=== PATIENT | female | born 1995 | race Caucasian/White ===

== ENCOUNTER 2018-08-12 13:02 | Inpatient (IN) ==
[2018-08-12 15:22] LABS: BILIRUBIN URINE 3+ (NEGATIVE); BLOOD URINE 2+ (NEGATIVE); CLARITY VERY CLOUDY (CLEAR); COLOR YELLOW; GLUCOSE URINE NEGATIVE (NEGATIVE); KETONE URINE 1+(Small) mg/dL (NEGATIVE); LEUKOCYTES URINE 2+ (NEGATIVE); NITRITE URINE NEGATIVE (NEGATIVE); PH URINE 6.5; UROBILINOGEN URINE 4 mg/dL
[2018-08-12 15:25] LABS: URINE BACTERIA 2+ /HFP; URINE CAST GRANULAR PRESENT /LPF; URINE CRYSTAL NONE SEEN /HPF; URINE EPITHELIAL CELLS >10 /HPF (<10); URINE RBC <10 /HPF (<10); URINE SOURCE CLEAN CATCH; URINE YEAST NONE SEEN /HPF
[2018-08-12] MEDS ORDERED: ZOFRAN IV ONE ×2 (15:47→18:44)
[2018-08-12] MEDS ORDERED: NS 1,000 ML IV ONE ×3 (15:47→18:58)
[2018-08-12] MEDS ORDERED: ROCEPHIN 1 GM in NS 50 ML IV ONE (15:48)
--- NOTE | 2018-08-12 16:26 | PROVIDER DOCUMENTATION ---
This chart was entered by Cora Zurita Scribe, acting as scribe for Dontrell Presley CRNP. HPI-General Adult - General Source: patient - History of Present Illness -Gen Adult Nature of Presenting Problems: 23 yowf presents to the ed with c/o bodyaches dysuria and pt is tachycardiac. pt was recently dc from hospital with sepsis and is currently on abx for UTI. pt has 2 more days of abx but sts sx have not improved. pt is unkempt in appearance Location of Pain/Injury: reports: generalized (bodyaches) Quality of Pain: reports: aching Severity: reports: moderate Onset/Duration: reports: other (10 days) Timing: reports: still present, getting worse Context/Activities at Onset: reports: light activity Modifying Factors: improves with: nothing Associated Symptoms: reports: fatigue, genitourinary problems, malaise, muscle aches. denies: back/neck pain, chest pain, fever/chills, nausea, vomiting Similar Symptoms Previously?: Yes Recently seen or treated by another doctor?: Yes (was seen in ed 07/29) <Dontrell Presley - Last Filed: 08/12/18 16:33> - General Source: patient - History of Present Illness -Gen Adult Location of Pain/Injury: reports: generalized Quality of Pain: reports: aching Severity: reports: moderate Onset/Duration: reports: other Timing: reports: still present, getting worse Context/Activities at Onset: reports: light activity Similar Symptoms Previously?: Yes Recently seen or treated by another doctor?: Yes <Aida Alegria - Last Filed: 08/12/18 20:40> - General Chief Complaint: Return/Recheck Stated Complaint: RETURN / REVISIT Time Seen by Provider: 08/12/18 15:44 Allergies/Adverse Reactions: Patient Allergies Allergy/AdvReac Type Severity Reaction Status Date / Time No Known Allergies Allergy Verified 07/28/17 13:01 Home Medications: Home Medication List Medication Instructions Recorded Confirmed Last Taken Type Cephalexin [Keflex] 500 mg PO BID #20 cap 07/29/18 Unknown Rx Review of Systems - Adult - REVIEW OF SYSTEMS - ADULT Constitutional: denies: chills, fever Eyes: reports: no symptoms reported Ears, Nose, Mouth & Throat: reports: no symptoms reported Cardiovascular: denies: chest pain, palpitations, syncope Respiratory: denies: cough, shortness of breath, wheezing Gastrointestinal: reports: no symptoms reported Genitourinary: reports: see HPI, dysuria, frequent UTI's Musculoskeletal: reports: see HPI, muscle aches. denies: back pain, neck pain Integumentary: reports: no symptoms reported Neurological: denies: dizziness/vertigo, headache/migraines Psychiatric: reports: no symptoms reported Endocrine: reports: no symptoms reported Hematologic/Lymphatic: reports: no symptoms reported Allergic/Immunologic: reports: no symptoms reported All Other Systems: Reviewed and Negative <Dontrell Presley - Last Filed: 08/12/18 16:33> - REVIEW OF SYSTEMS - ADULT Eyes: reports: no symptoms reported <Aida Alegria - Last Filed: 08/12/18 20:40> Past History - Adult - PAST MEDICAL HISTORY-ADULT Review of Records: reports: Nursing Assessment Review, Medications Reviewed Major Childhood Illnesses: reports: denies history Cardiovascular: reports: denies history Respiratory: reports: denies history Gastrointestinal: reports: denies history Obstetrical/Gynecological: reports: denies history Genitourinary: reports: denies history Musculoskeletal: reports: denies history Neurological: reports: denies history Psychiatric: reports: anxiety Endocrine/Immune: reports: denies history Other Conditions: reports: denies history - PRIOR SURGERIES/PROCEDURES Surgical/Procedure History: reports: tonsillectomy - IMMUNIZATION STATUS Childhood Immunizations: See Nurse Assessment Flu Vaccine: See Nurse Assessment - FAMILY HISTORY Family History: reviewed, not pertinent - SOCIAL HISTORY Smoking: cigarettes, less than 1 pack/day Provider spent 3-5 mins advising pt. on dangers of tobacco.: Discussed manners to quit use, and f/u contacts for add'l counseling. Substance Use: denies Alcohol Use Frequency: never Living Situation: family <Dontrell Presley - Last Filed: 08/12/18 16:33> - PAST MEDICAL HISTORY-ADULT Review of Records: reports: Medications Reviewed <Aida Alegria - Last Filed: 08/12/18 20:40> Physical Exam-General - PHYSICAL EXAM-ADULT Initial Vital Signs Reviewed: Yes - CONSTITUTIONAL General Appearance: alert, mild distress - EYES Eyes: PERRL/EOMI, pink conjunctivae - HEAD, EARS, NOSE, MOUTH & THROAT HENMT: moist mucous membranes, normal ENT inspection - NECK Neck: non-tender, full range of motion, supple, normal inspection - RESPIRATORY Respiratory: chest non-tender, lungs clear, normal breath sounds - CARDIOVASCULAR Cardiovascular: normal peripheral pulses, tachycardia (135) - GASTROINTESTINAL (ABDOMEN) Abdominal Exam: normal bowel sounds, non tender, soft - LYMPHATIC Lymphatic: no adenopathy - MUSCULOSKELETAL Back Exam: normal inspection Extremity: normal range of motion, non-tender, normal gait, normal inspection - SKIN Integumentary: normal color, normal turgor, warm/dry - NEUROLOGIC Neurologic: grossly normal - PSYCHIATRIC Psych/Mental Status: normal mood/affect, normal thought content, normal thought process, oriented x 3 <Dontrell Presley - Last Filed: 08/12/18 16:33> - PHYSICAL EXAM-ADULT Initial Vital Signs Reviewed: Yes - CONSTITUTIONAL General Appearance: alert, mild distress - EYES Eyes: PERRL/EOMI, pink conjunctivae - HEAD, EARS, NOSE, MOUTH & THROAT HENMT: moist mucous membranes, normal ENT inspection - NECK Neck: non-tender, full range of motion, supple, normal inspection - RESPIRATORY Respiratory: chest non-tender, lungs clear, normal breath sounds - CARDIOVASCULAR Cardiovascular: normal peripheral pulses, tachycardia - GASTROINTESTINAL (ABDOMEN) Abdominal Exam: normal bowel sounds, soft, tenderness (RUQ) - LYMPHATIC Lymphatic: no adenopathy - MUSCULOSKELETAL Back Exam: normal inspection Extremity: normal range of motion, non-tender, normal gait, normal inspection - SKIN Integumentary: normal color, normal turgor, warm/dry - NEUROLOGIC Neurologic: grossly normal - PSYCHIATRIC Psych/Mental Status: normal mood/affect, normal thought content, normal thought process, oriented x 3 <Aida Alegria - Last Filed: 08/12/18 20:40> Progress - PLAN OF CARE/RESULTS Progress/Plan/Lab Results: Vital Signs - 8 hr 08/12/18 13:10 Temperature 98.1 F Pulse Rate 135 H Respiratory Rate 18 Blood Pressure 118/82 O2 Sat by Pulse Oximetry 99 Laboratory Results - last 24 hr 08/12/18 08/12/18 15:04 15:04 Urine Source CLEAN CATCH Urine Color YELLOW Urine Clarity VERY CLOUDY A Urine pH 6.5 Ur Specific [place] 1.020 Urine Protein 3+(500 mg/dL) A Urine Ketones 1+(Small) A Urine Blood 2+ A Urine Nitrite NEGATIVE Urine Bilirubin 3+ A Urine Urobilinogen 4 Urine Microscopic RBC <10 Urine WBC 2+ A Urine Microscopic WBC 10-20 A Ur Epithelial Cells >10 A Urine Crystals NONE SEEN Urine Bacteria 2+ Urine Casts GRANULAR PRESENT Urine Yeast NONE SEEN Urine Glucose NEGATIVE Urine Test NEGATIVE Orders Category Date Time Status Saline Loc NOW Care 08/12/18 15:47 Active BLOOD CULTURE [BLDCUL] Stat Lab 08/12/18 15:47 Uncollected CBC WITH ELECTRONIC DIFF [HEME] Stat Lab 08/12/18 15:47 Uncollected COMPREHENSIVE METABOLIC PANEL [CHEM] Stat Lab 08/12/18 15:47 Uncollected LACTATE, PLASMA [CHEM] Stat Lab 08/12/18 15:47 Uncollected TEST-URINE [PREG] Stat Lab 08/12/18 15:[address] W/POSS RFLX CULT [URINALYSIS] Stat Lab 08/12/18 15:04 Completed URINE CULTURE [RM] Routine Lab 08/12/18 15:25 Ordered 0.9% Sodium Chloride Inj [Ns] 1,000 ml Med 08/12/18 15:47 Active IV 999 mls/hr CefTRIAXONE [Rocephin] 1 gm Med 08/12/18 15:48 Active 0.9% Sodium Chloride Inj [Ns] 50 ml IV NOW Ondansetron [Zofran] Med 08/12/18 15:47 Discontinued 4 mg IV NOW ONE - CHANGE OF SHIFT REPORT (ED Provider) 1 Report Given and Care Transferred to:: TAINA Mullins Time of Transfer: 16:33 Items Pending: Labs <Dontrell Presley - Last Filed: 08/12/18 16:33> - PLAN OF CARE/RESULTS Progress/Plan/Lab Results: Vital Signs - 8 hr 08/12/18 13:10 Temperature 98.1 F Pulse Rate 135 H Respiratory Rate 18 Blood Pressure 118/82 O2 Sat by Pulse Oximetry 99 Laboratory Results - last 24 hr 08/12/18 08/12/18 15:04 15:04 Urine Source CLEAN CATCH Urine Color YELLOW Urine Clarity VERY CLOUDY A Urine pH 6.5 Ur Specific [place] 1.020 Urine Protein 3+(500 mg/dL) A Urine Ketones 1+(Small) A Urine Blood 2+ A Urine Nitrite NEGATIVE Urine Bilirubin 3+ A Urine Urobilinogen 4 Urine Microscopic RBC <10 Urine WBC 2+ A Urine Microscopic WBC 10-20 A Ur Epithelial Cells >10 A Urine Crystals NONE SEEN Urine Bacteria 2+ Urine Casts GRANULAR PRESENT Urine Yeast NONE SEEN Urine Glucose NEGATIVE Urine Test NEGATIVE Orders Category Date Time Status Saline Loc NOW Care 08/12/18 15:47 Active BLOOD CULTURE [BLDCUL] Stat Lab 08/12/18 16:37 Ordered CBC WITH ELECTRONIC DIFF [HEME] Stat Lab 08/12/18 16:37 Ordered COMPREHENSIVE METABOLIC PANEL [CHEM] Stat Lab 08/12/18 16:37 Ordered LACTATE, PLASMA [CHEM] Stat Lab 08/12/18 16:37 Ordered TEST-URINE [PREG] Stat Lab 08/12/18 15:[address] W/POSS RFLX CULT [URINALYSIS] Stat Lab 08/12/18 15:04 Completed URINE CULTURE [RM] Routine Lab 08/12/18 15:25 Ordered 0.9% Sodium Chloride Inj [Ns] 1,000 ml Med 08/12/18 15:47 Discontinued IV 999 mls/hr CefTRIAXONE [Rocephin] 1 gm Med 08/12/18 15:48 Discontinued 0.9% Sodium Chloride Inj [Ns] 50 ml IV NOW Ondansetron [Zofran] Med 08/12/18 15:47 Discontinued 4 mg IV NOW ONE Discussed plan of care with patient. 1825- called hospitalist to admit patient, waiting for callback. Result Diagrams: 08/12/18 16:20 08/12/18 16:20 - CONSULTS/PCP/HOSPITALIST Notification #1 *Consult/PCP/Hospitalist*: Dr. Bruno Time Discussed: 19:00 Reason/Comments: Admit Consult Disposition: Admit <Aida Alegria - Last Filed: 08/12/18 20:40> Departure - Departure Certified Medical Emergency: Emergent - Critical Care Note This patient required my direct & personal management of CC.: No <Dontrell Presley - Last Filed: 08/12/18 16:33> - Departure Date of Disposition Decision: 08/12/18 Time of Disposition Decision: 18:25 Certified Medical Emergency: Emergent - Critical Care Note This patient required my direct & personal management of CC.: No <Aida Alegria - Last Filed: 08/12/18 20:40> - Departure DIAGNOSIS: Tobacco use disorder, Right upper quadrant pain Urinary tract infection Qualifiers: Urinary tract infection type: site unspecified Hematuria presence: without hematuria Qualified Code(s): N39.0 - Urinary tract infection, site not specified Sepsis Qualifiers: Sepsis type: sepsis due to unspecified organism Qualified Code(s): A41.9 - Sepsis, unspecified organism Disposition: ADMITTED INPATIENT 09 Condition: Stable Referrals and Follow-Ups: None,PCP [Primary Care Provider] - Attestation - Physician/ SAIMA Attestation Patient care was provided by Advanced Practice Provider:: Yes Advanced Practice Provider:: Dontrell Presley Advanced Practice Provider documentation review:: The Mid-level provider documentation, treatment plan and medical decision making was reviewed by the physician who agrees with all treatment and medical decision making by the P. The physician spent face to face time with patient:: No Advanced Practice Provider documentation review:: Supervising physician onsite and consulted in the evaluation and care of this patient. The physician did not have a face to face encounter with the patient. <Dontrell Presley - Last Filed: 08/12/18 16:33> - Physician/ SAIMA Attestation #2 Shift Change Time: 17:00 Patient care was provided by Advanced Practice Provider:: Yes Advanced Practice Provider:: Aida Alegria The physician spent face to face time with patient:: No <Aida Alegria - Last Filed: 08/12/18 20:40> This chart was documented by the indicated scribe, (Cora Zurita Scribe) and accurately reflects the services I performed and decisions made by , Dontrell Presley CRNP, as attested by the provider's signature.
[2018-08-12 17:40] LABS: BASO# 0.01 X1000 (0.0-0.2); BASO% 0.1 % (0.0-0.8); HEMATOCRIT 46.8 % (37.0-47.0); HEMOGLOBIN 15.9 g/dL (12.0-16.0); IMM GRAN# 0.02 X1000 (0.0-0.04); IMM GRAN% 0.2 % (0.0-0.5); LYMPH# 0.29 X1000 (1.2-3.4); LYMPH% 2.9 % (20.5-51.1); MCH 30.2 PG (27-31); MONO# 0.16 X1000 (0.11-0.59); MONO% 1.6 % (1.7-9.3); MPV 11.8 FL (7.4-10.4); NEUT# 9.56 X1000 (1.4-6.5); NEUT% 95.2 % (42.2-75.2); PLT 222 X1000 (130-400); RBC 5.26 XMIL (4.2-5.4); WBC 10.04 X1000 (4.8-10.8)
[2018-08-12 18:07] LABS: AGAP 20; ALBUMIN 4.2 g/dL (3.5-5.0); ALKALINE PHOSPHATASE 220 U/L (32-104); BUN 11 mg/dL (8-22); CALCIUM 9.3 mg/dL (8.8-10.2); CHLORIDE 88 mmol/L (98-107); COSMO 260; CREATININE 0.6 mg/dL (0.5-0.9); ESTIMATED GFR > 60; GLUCOSE 87 mg/dL (70-104); GOT < 5 U/L (10-30); GPT < 5 U/L (10-36); POTASSIUM 4.7 mmol/L (3.5-5.1); SODIUM 130 mmol/L (136-145); TCO2 22 mmol/L (25-35); TOTAL PROTEIN 7.5 g/dL (6.3-8.3)
[2018-08-12] MEDS ORDERED: MORPHINE IV ONE (18:43)
[2018-08-12 18:46] LABS: INR 3.16; PROTIME 33.9 Seconds (11.0-16.0); PTT 33.2 Seconds (22.3-41.8)
[2018-08-12] MEDS ORDERED: ROCEPHIN IV ONE (18:54)
[2018-08-12] MEDS ORDERED: ZOFRAN ODT PO PRN (18:56)
--- NOTE | 2018-08-12 20:03 | Diag Imaging Result Doc PS360 ---
EXAM: US GB < RUQ (LIMITED) INDICATION: RUQ pain COMPARISON: None. FINDINGS: The gallbladder appears normal with no stones, wall thickening, or pericholecystic fluid. The common bile duct is normal in diameter. The technologist did reported positive sonographic Anaya sign. The liver is mildly prominent measuring up to 19.5 cm in length. The liver echotexture is unremarkable. Portal venous flow is hepatopetal. The visualized pancreas is unremarkable. The aorta and IVC are grossly unremarkable. The right kidney is grossly unremarkable. IMPRESSION: 1.Grossly unremarkable gallbladder. However, the motion picture narrator did report a positive sonographic Anaya sign. Please correlate clinically. 2.Mildly prominent liver. Electronically signed by Sean Call 08/12/2018 8:01 PM
--- NOTE | 2018-08-12 20:19 | Diag Imaging Result Doc PS360 ---
EXAM: CHEST-1 VIEW INDICATION: sepsis TECHNIQUE: One view COMPARISON: 07/26/2018 FINDINGS: The lungs are grossly clear. There is no discrete pleural fluid collection or pneumothorax. The cardiomediastinal silhouette and central vasculature are grossly unremarkable. IMPRESSION: No evidence of acute pathology by plain radiograph. Electronically signed by Sena Call 08/12/2018 8:17 PM
[2018-08-13] MEDS: TYLENOL PO PRN ×3 (01:21→18:11)
[2018-08-13 06:46] LABS: BASO# 0.02 X1000 (0.0-0.2); BASO% 0.5 % (0.0-0.8); EOS# 0.05 X1000 (0.0-0.7); EOS% 1.3 % (0.0-10.0); HEMATOCRIT 39.2 % (37.0-47.0); HEMOGLOBIN 13.1 g/dL (12.0-16.0); LYMPH# 0.92 X1000 (1.2-3.4); LYMPH% 24.6 % (20.5-51.1); MCH 29.8 PG (27-31); MCHC 33.4 g/dL (33-37); MCV 89.3 FL (81-99); MONO# 0.11 X1000 (0.11-0.59); MONO% 2.9 % (1.7-9.3); MPV 11.2 FL (7.4-10.4); NEUT# 2.64 X1000 (1.4-6.5); NEUT% 70.7 % (42.2-75.2); PLT 157 X1000 (130-400); RBC 4.39 XMIL (4.2-5.4); WBC 3.74 X1000 (4.8-10.8)
[2018-08-13] MEDS ORDERED: ROCEPHIN IV SCH (09:00)
[2018-08-13] MEDS: ZOSYN 3.375 GM in NS 50 ML IV SCH ×3 (10:01→21:16)
--- NOTE | 2018-08-13 10:17 | HISTORY AND PHYSICAL ---
PRIMARY CARE PHYSICIAN: None. CHIEF COMPLAINT: Body aches and dysuria since being discharged from the hospital on 07/29/2018 after having sepsis with UTI. HISTORY OF PRESENTING ILLNESS: This is a 23-year-old female who presents to [facility] ER with complaints of body aches, dysuria, abdominal pain, and low back pain with CVA tenderness. She was admitted to the hospital here at [facility] [place] on 07/27/2018 through 07/29/2018 with pyelonephritis right-sided with positive E. Coli urine culture, but ESBL negative. She had been treated with IV antibiotics during her stay. She had been septic initially, and was discharged home on p.o. antibiotics Keflex 500 mg p.o. t.i.d. She states that she still has 2 more days of those antibiotics left, but she continues to have dysuria, bilateral CVA tenderness, and abdominal pain. Her workup showed a urinalysis with negative nitrites with 2+ white blood cells, 2+ bacteria. White blood cell count on arrival was 10.04. Repeat this morning was at 3.74. She was tachycardic on arrival at 1:35, so she is being admitted for sepsis and UTI with failed outpatient treatment for further evaluation and treatment. PAST MEDICAL HISTORY: None except for her recent pyelonephritis. PAST SURGICAL HISTORY: Tonsillectomy. FAMILY HISTORY: Reviewed and noncontributory. SOCIAL HISTORY: She currently lives with family. She smokes a half to a pack of cigarettes a day. Denies any alcohol or illicit drug use. ALLERGIES: She has no known drug allergies. HOME MEDICATIONS: She does not take any medications on a routine basis. Again, she was finishing up her last 2 days of Keflex that she received at discharge on 07/29/2018. LABORATORY DATA: White blood cell count of 10.04, hemoglobin 15.9, hematocrit 46.8, and platelets 222,000. Repeat this morning showed a white blood cell count of 3.74. PT and INR of 33.9 and 3.16. Sodium of 130, potassium 4.7, chloride 88, CO2 22, BUN of 11, creatinine 0.6, and glucose of 87. Her AST was less than 5, ALT less than 5, alkaline phosphatase 220. Cardiac enzyme was negative. Initial plasma lactate was 4.9. Repeat 6 hours later was 2.9. Repeat 4 hours later was still 2.9. Urinalysis showed negative nitrites, 2+ white blood cells, and 2+ bacteria. Chest x-ray showed no evidence of acute pathology by plain radiograph. We did an abdominal ultrasound that showed a grossly unremarkable gallbladder. However, the grain elevator superintendent did report a positive sonographic Anaya sign, and a mild prominent liver. REVIEW OF SYSTEMS: She denied any fever, chills, blurred vision, or dizziness. She had body aches. She denied any chest pain, coughing, or shortness of breath. She was positive for generalized abdominal pain, low back pain with CVA tenderness bilaterally. Denied any nausea, vomiting, constipation, or diarrhea. She does have burning with urination and frequency and urgency. PHYSICAL EXAMINATION: VITAL SIGNS: On arrival, she had a temperature of 98.1 degrees a pulse of 135, respirations 18, blood pressure 118/82 saturating 99% on room air. Currently, her heart rate is down to 84. HEENT: Normocephalic, atraumatic. Normal ENT inspection. Oropharynx and nares are clear. EYES: Pupils are equal, round, and reactive to light and accommodation. Extraocular movements are intact. NECK: Normal inspection. Normal range of motion. LUNGS: Clear to auscultation bilaterally with equal lung expansion and chest wall movement. HEART: Regular rate and rhythm. No murmurs, rubs, or gallops. ABDOMEN: Soft. There is tenderness to palpation throughout entire abdomen. Bowel sounds are present x4 quadrants. MUSCULOSKELETAL: She is noted to have bilateral CVA tenderness and low back pain, but she moves all extremities well with 5/5 strength x4 extremities. NEUROLOGICAL: The cranial nerves 2-12 appear grossly intact. ASSESSMENT: 1. Sepsis. 2. Pyelonephritis. 3. Hyponatremia. 4. Tobacco abuse. PLAN: She has been admitted to the medical unit. Placed on telemetry. Regular diet. Urine culture and blood cultures x2 are pending. She was given Rocephin 1 gram IV x1 in the emergency room. We are going to place her on Zosyn 3.375 g IV q.6 until her urine culture returns. She is on normal saline at 125 mL an hour, Zofran 4 mg p.o. q.6 hours p.r.n. Tylenol 650 mg p.o. q.4 hours p.r.n. Further orders after seen by attending. Dictated by TAINA Simon for Arvin Tavares MD Addendum: Patient seen and examined by myself. Agree with TAINA note. It reflects my assessment and plan. Patient is being admitted to hospital for pyelonephritis. Will start broad spectrum antibiotics and will follow result of urine culture. Will also order renal US as well. cc: TAINA Simon MD [facility]
--- NOTE | 2018-08-13 11:10 | Diag Imaging Result Doc PS360 ---
EXAM: US RENAL 2 (RETROPER) COMPLETE HISTORY: recurrent uti TECHNIQUE: Renal ultrasound COMPARISON: None. FINDINGS: The right kidney measures 12.5 x 4.6 x 5.2 cm. Normal renal echotexture and cortical thickness. No renal stone or hydronephrosis. No renal mass. The left kidney measures 13.2 x 4.7 x 6.5 cm. Normal renal echotexture and cortical thickness. No renal stone or hydronephrosis. No renal mass. The urinary bladder is only mildly distended. IMPRESSION: Normal renal ultrasound. Electronically signed by Ronnie Marsh 08/13/2018 11:08 AM
--- NOTE | 2018-08-13 11:11 | Diag Imaging Result Doc PS360 ---
EXAM: CHEST-2 VIEWS HISTORY: r/o pna vs bronchitis TECHNIQUE: Chest two views COMPARISON: 08/12/2018 FINDINGS: The lungs are well expanded. The heart is not enlarged. The vessels are not distended. There are no infiltrates. No pleural effusions. IMPRESSION: Normal chest Electronically signed by Ronnie Marsh 08/13/2018 11:08 AM
[2018-08-13] MEDS ORDERED: ROCEPHIN 2 GM in NS 50 ML IV SCH (14:00)
[2018-08-14] MEDS: ZOSYN 3.375 GM in NS 50 ML IV SCH ×4 (03:09→21:55)
[2018-08-14 07:52] LABS: BASO# 0.02 X1000 (0.0-0.2); BASO% 0.5 % (0.0-0.8); EOS# 0.15 X1000 (0.0-0.7); EOS% 3.7 % (0.0-10.0); HEMATOCRIT 38.6 % (37.0-47.0); HEMOGLOBIN 13.2 g/dL (12.0-16.0); LYMPH# 0.79 X1000 (1.2-3.4); LYMPH% 19.5 % (20.5-51.1); MCH 30.6 PG (27-31); MCHC 34.2 g/dL (33-37); MCV 89.4 FL (81-99); MONO# 0.21 X1000 (0.11-0.59); MONO% 5.2 % (1.7-9.3); MPV 11.5 FL (7.4-10.4); NEUT# 2.88 X1000 (1.4-6.5); NEUT% 71.1 % (42.2-75.2); PLT 150 X1000 (130-400); RBC 4.32 XMIL (4.2-5.4); RDW 15.2 % (11.5-14.5); WBC 4.05 X1000 (4.8-10.8)
[2018-08-14 07:53] LABS: AGAP 13; BUN 2 mg/dL (8-22); CALCIUM 8.5 mg/dL (8.8-10.2); CHLORIDE 104 mmol/L (98-107); COSMO 272; CREATININE 0.2 mg/dL (0.5-0.9); ESTIMATED GFR > 60; GLUCOSE 92 mg/dL (70-104); POTASSIUM 3.5 mmol/L (3.5-5.1); SODIUM 138 mmol/L (136-145); TCO2 21 mmol/L (25-35)
[2018-08-14] MEDS: TYLENOL PO PRN (09:09)
--- NOTE | 2018-08-14 12:51 | PROGRESS NOTE ---
DATE: 08/14/2018 SUBJECTIVE: Patient reports still feeling nauseated, better in comparing with yesterday but that sensation is still present. Reports still some body aches and dysuria. OBJECTIVE: Vital Signs: Temperature 98.5 degrees, heart rate 89, respiratory rate 16, blood pressure 128/64, O2 saturation 98% on room air. General Examination: This is a 24-year-old, female lying in bed, in no acute distress. Cardiovascular Examination: S1 and S2 heard. No murmurs, gallops, or rubs. Regular rate and rhythm. Respiratory Examination: Clear bilaterally to auscultation. No work of breathing or using accessory muscles. Abdomen: Soft, nontender to palpation. Bowel sounds present. No organomegaly. There is mild CVA tenderness on both sides. Extremities: No clubbing, cyanosis, or edema. Peripheral pulses present in both legs. Neurological Examination: The patient is alert and oriented x3. Moves 4 extremities. Laboratory Data: White cell count 4.05, hemoglobin 13.2, hematocrit 38.6, platelets 150,000, with normal BMP. ASSESSMENT AND PLAN: Sepsis secondary to acute pyelonephritis. Clinically, this patient is a little bit better. The urine culture is negative. Blood cultures for the last 2 days are negative so far. At this point, we are going to continue with the same management. If this patient is not nauseated tomorrow and able to eat normally, I think she can be discharged. Also, patient was complaining of some cough but the chest x-ray shows normal findings. At this point, we will continue with the same management. cc: Arvin Tavares MD
[2018-08-14 21:01] VITALS: BP 136/75
[2018-08-15] MEDS: ZOSYN 3.375 GM in NS 50 ML IV SCH ×2 (04:35→09:53)
[2018-08-15 08:38] LABS: BASO# 0.03 X1000 (0.0-0.2); BASO% 0.8 % (0.0-0.8); EOS# 0.15 X1000 (0.0-0.7); EOS% 4.1 % (0.0-10.0); HEMATOCRIT 40.9 % (37.0-47.0); HEMOGLOBIN 14.2 g/dL (12.0-16.0); IMM GRAN# 0.01 X1000 (0.0-0.04); IMM GRAN% 0.3 % (0.0-0.5); LYMPH# 1.43 X1000 (1.2-3.4); LYMPH% 38.8 % (20.5-51.1); MCH 29.9 PG (27-31); MCHC 34.7 g/dL (33-37); MCV 86.1 FL (81-99); MONO# 0.36 X1000 (0.11-0.59); MONO% 9.8 % (1.7-9.3); MPV 10.9 FL (7.4-10.4); NEUT# 1.71 X1000 (1.4-6.5); NEUT% 46.2 % (42.2-75.2); PLT 212 X1000 (130-400); RBC 4.75 XMIL (4.2-5.4); RDW 15.4 % (11.5-14.5); WBC 3.69 X1000 (4.8-10.8)
[2018-08-15 08:48] LABS: AGAP 11; BUN 1 mg/dL (8-22); CALCIUM 8.6 mg/dL (8.8-10.2); CHLORIDE 102 mmol/L (98-107); COSMO 273; CREATININE 0.2 mg/dL (0.5-0.9); ESTIMATED GFR > 60; GLUCOSE 96 mg/dL (70-104); POTASSIUM 3.2 mmol/L (3.5-5.1); SODIUM 139 mmol/L (136-145); TCO2 27 mmol/L (25-35)
[2018-08-15] MEDS ORDERED: KLOR-CON PO ONE (09:12)
[2018-08-15] MEDS ORDERED: MIRALAX PO SCH (09:45)
--- NOTE | 2018-08-15 21:56 | DISCHARGE SUMMARY ---
ADMISSION DATE: 08/12/2018 DISCHARGE DATE: 08/15/2018 ADMISSION DIAGNOSIS: 1. Sepsis. 2. Pyelonephritis. 3. Hyponatremia. 4. Tobacco abuse. DISCHARGE DIAGNOSIS: 1. Sepsis secondary to an acute pyelonephritis with urine culture showing no pathogenic growth. 2. Hyponatremia resolved. 3. Tobacco abuse. SUMMARY OF FINDINGS: This is a 23-year-old female who presented to the ER with complaints of body aches, dysuria, abdominal pain and low back pain with CVA tenderness, had just been in the hospital on 07/27/2018 through 07/29/2018 with a pyelonephritis and E. Coli, urine culture ESBL negative. States that she continued to have dysuria, bilateral CVA tenderness and abdominal pain. Her urinalysis on arrival showed negative nitrites, 2+ white blood cells, 2+ bacteria. Her urine culture showed no pathogenic growth. Her blood culture showed no pathogenic growth. She was admitted, placed on IV antibiotics, IV hydration and her symptoms have much improved. Her hyponatremia resolved with fluid resuscitation and it is now felt that she can safely be discharged home today. DISCHARGE MEDICATIONS: Include Zofran ODT 4 mg p.o. q.6 hours p.r.n. #20 with no refills, MiraLAX 17 g p.o. daily, cefdinir 300 mg p.o. b.i.d. #20 with no refill FOLLOWUP: She will need to follow up with a primary care physician in the next 1 to 2 weeks. We can provide her with a physician referral line. TIME SPENT: 33 minutes. Dictated by TAINA Simon for Arvin Tavares MD Addendum: Patient seen and examined by myself. Agree with TAINA note. It reflects my assessment and plan. Patient is being discharged from hospital in stable condition. Will be seen by PCP in a week. cc: TAINA Simon MD [facility]
== END 2018-08-15 11:23 | disposition home or self-care (01) | DRG 872 ==
LOC: P.ED 13:02 → P.MEDSURG 20:50
PROVIDERS: ATTEND Internal Medicine
CPT/HCPCS: 71010; 71020; 71045; 71046; 76705; 76770; 80048; 80053; 81001; 81025; 82550; 83605; 84484; 85025; 85610; 85730; 87040; 87088; 96361; 96365; 96366; 96375; 96376; 99285; A9270; J0696; J2270; J2405; J2543; J7030